=== PATIENT | male | born 1945 | race Caucasian/White ===

== ENCOUNTER 2024-04-12 00:48 | Emergency (ER) | payer MEDICARE, OTHER, SELFPAY ==
[2024-04-12 00:52] VITALS: BP 157/97
--- NOTE | 2024-04-12 01:18 | ED.GENMED ---
History of Present Illness
General
Chief Complaint: Post Operative Problem(s)
Source: patient and family
Exam Limitations: none
Time Seen by Provider: 04/12/24 01:00
Nursing documentation reviewed up to this point in time: agreed with
Travel History
Have you had any contact with someone who has COVID-19?: No
Do you have any symptoms of coronavirus? Fever > 100 degrees, chills, cough, shortness of breath, sore throat, loss of taste or smell, muscle aches, or headache?: No
History of Present Illness
History of Present Illness:
Pleasant 79-year-old male who presents with left ear bleeding. Patient had Mohs surgery by Dr. Rouse earlier today. Around 10 PM this evening, the bleeding started. He is was unable to get it under control. Patient is on aspirin and Plavix.
Patient denies fever, chills, chest pain, or shortness of breath. He reports no other complaints.
Past History
Past History
ED Past Medical History: HTN, Hypercholesterolemia, NIDDM and NC
ED Past Surgical History: Appendectomy and Cardiac (Stents X 2)
Social History
Tobacco: Non-smoker
Alcohol: Occasional
Drug: None
Personal:
Living: with family
Employment: Retired
Family History
Family History: Other
Review of Systems
Review of Systems
Allergies reviewed?: Yes
Other source history: family
All Other Systems: ROS reviewed and negative except as documented in HPI and ROS
Phy Exam
General Physical Exam
General Presentation: well appearing and mild distress
General age: appears stated age
General Skin: warm and dry
General Habitus: elderly
General Mental: alert
General Hydration: appears well hydrated
ENT Exam
ENT Exam: EOMI, neck supple and swallowing well
Eye Exam
Eye Exam: PERRL and EOMI
Pulmonary Exam
Pulmonary Exam: lungs clear and no respiratory distress
Cough: no cough
Neurological Exam
Neurological Exam: alert and oriented x3
Musculoskeletal Exam
Musculoskeletal Exam: full ROM and neck pain
Skin Exam
Skin Exam: normal color, warm/dry and other (Left ear evidence of Mohs surgery. There is bleeding coming from the top of the ear from the suture line. )
Course
Vital Signs
Initial and Last Documented VS:
Initial Vital Signs
Temp Pulse Resp BP Pulse Ox
98.7 F 99 20 157/97 98
04/12/24 00:52 04/12/24 00:52 04/12/24 00:52 04/12/24 00:52 04/12/24 00:52
Last Documented Vital Signs
Temp Pulse Resp BP Pulse Ox
98.7 F 109 20 142/92 97
04/12/24 00:52 04/12/24 03:21 04/12/24 00:52 04/12/24 03:21 04/12/24 03:21
*Critical Care Note
Total Time (30-74mins, 75-104mins- exclusive of procedures): Not Applicable
Update Note
Update Note:
I placed a suture to help control the bleeding. I packed the wound with Surgifoam. Bleeding is controlled.
04/12/2024 0248 AM: Bleeding has been controlled. Patient to be discharged home to follow-up with Dr. Rouse
ED Attending Note
-
Portions of this chart may have been created with voice recognition software.� Occasional wrong word or��sound alike� substitutions may have occurred due to the inherent limitations of voice recognition software.
Discharge Plan
Departure
Patient Disposition: Home (Routine Discharge)
Date of Disposition: 04/12/24
Time of Disposition: 02:59
Patient with high blood pressure during this ER visit?: Yes
Condition: Good
Discharge Problem:
Post-op bleeding
Instructions: Wound Care (DC), Bleeding After Surgery
Prescriptions:
No Action
glipizide 5 MG tablet extended release 24hr
5 mg PO DAILY
metformin 1,000 MG tablet
1,000 mg PO BID@0800,1700
aspirin 81 MG tablet,chewable
81 mg PO DAILY
azelastine 1 SPRAY aerosol,spray
2 spray intranasal DAILY
folic acid 0.8 MG capsule
0.8 mg PO DAILY
sitagliptin phosphate [Januvia] 100 MG tablet
100 mg PO DAILY
multivitamin with folic acid [Tab-A-Natasha] 1 TABLET tablet
1 tab PO DAILY
fluticasone propionate 1 SPRAY spray,suspension
2 spray intranasal DAILY
atorvastatin 40 MG tablet
40 mg PO QPM Qty: 90 3RF
acetaminophen 325 MG tablet
650 mg PO Q4HPRN PRN (Reason: mild pain) 0RF
pantoprazole 40 MG tablet,delayed release (DR/EC)
40 mg PO DAILY Qty: 90 0RF
metoprolol succinate 12.5 MG tablet extended release 24 hr
12.5 mg PO HS Qty: 30 1RF
clopidogrel 75 MG tablet
75 mg PO DAILY Qty: 30 3RF
oxycodone 5 MG tablet
5 mg PO Q6HPRN PRN (Reason: moderate-severe pain control) Qty: 28 0RF
dapagliflozin propanediol [Farxiga] 10 MG tablet
10 mg PO DAILY Qty: 30 0RF
furosemide [Lasix] 40 MG tablet
40 mg PO DAILY Qty: 7 1RF
potassium chloride [Klor-Con M20] 20 MEQ tablet,ER particles/crystals
20 meq PO DAILY Qty: 7 1RF
Referrals:
Harrison Chaidez MD [Family Provider] -
Ra Rouse MD [Consulting Staff] -
Activity Restrictions/Additional Instructions:
Please follow-up with Dr. Rouse.
It was a pleasure meeting you and taking part in your care. We hope for your continued healing and wellness.
Please read discharge instructions in their entirety. However, they are for general education and may not describe your exact diagnosis at discharge. Information on your ER visit and medical conditions were discussed with you along with appropriate
follow up information...
If indicated, please take your medications as instructed and indicated on discharge paperwork.
Please schedule a follow up appointment as directed. Call to schedule an appointment
Please return to the emergency department with ANY change in, persisting, or worsening of symptoms. If any of your symptoms do not improve, or persist, or become more severe within 6-12 hours, please return to the emergency department for further
care.
Please return to the emergency department if you develop a headache, neck pain/stiffness, fever greater than 100.4F, chest pain, shortness of breath, persistent nausea, vomiting, slurred speech, difficulty walking, numbness/tingling, weakness, signs
of infection or any other symptoms that are worrisome to you.
If you have any questions or concerns please do not hesitate to call the Hospital at or E-mail me directly at [email or web address]
Interventions
Interventions:
*Risk Screen - Suicide Last Done: 04/12/24 00:52
*General Assessment Last Done: 04/12/24 00:52
*Neglect/Abuse Screening Last Done: 04/12/24 00:52
ED- Fall Risk Assessment Last Done: 04/12/24 00:52
*ED COVID-19 Vaccine History Last Done: 04/12/24 00:52
*Nursing Disposition Last Done: 04/12/24 03:21
ED-Skin Assessment Last Done: 04/12/24 01:28
Discharge Date and Time
Discharge Date/Time: 04/12/24 03:24
Print Language: CYMRO
[2024-04-12 03:21] VITALS: BP 142/92
== END 2024-04-12 03:24 | disposition home or self-care (01) ==
LOC: EMR 00:48
PROVIDERS: EMERGENCY PHYSICIAN Student in an Organized Health Care Education/Training Program; FAMILY PHYSICIAN Family Medicine
DX: L76.21 Postprocedural hemorrhage of skin and subcutaneous tissue following a dermatologic procedure (principal); I10 Essential (primary) hypertension; E78.00 Pure hypercholesterolemia, unspecified; E11.9 Type 2 diabetes mellitus without complications; I25.2 Old myocardial infarction; Z79.02 Long term (current) use of antithrombotics/antiplatelets; Z79.82 Long term (current) use of aspirin; Z90.49 Acquired absence of other specified parts of digestive tract; Z95.5 Presence of coronary angioplasty implant and graft
CPT/HCPCS: 99282

== ENCOUNTER 2024-08-12 13:58 | Outpatient (RCR) | payer MEDICARE, OTHER, SELFPAY | END 2024-08-12 23:59 | disposition home or self-care (01) | LOC: RPT 13:58 | PROVIDERS: ATTENDING PHYSICIAN Family Medicine | DX: R26.89 Other abnormalities of gait and mobility (principal); E08.8 Diabetes mellitus due to underlying condition with unspecified complications; R26.2 Difficulty in walking, not elsewhere classified; M62.81 Muscle weakness (generalized) | CPT/HCPCS: 97110; 97112; 97162 ==

== ENCOUNTER → 2024-09-06 11:11 | Outpatient (REF) | payer MEDICARE, OTHER, SELFPAY | LOC: RAD 11:11 | PROVIDERS: ATTENDING PHYSICIAN Family Medicine | DX: M54.50 Low back pain, unspecified (principal) | CPT/HCPCS: 72110 ==

== ENCOUNTER 2024-09-11 09:55 | Outpatient (RCR) | payer MEDICARE, OTHER, SELFPAY | END 2024-09-11 23:59 | disposition home or self-care (01) | LOC: RPT 09:55 | PROVIDERS: ATTENDING PHYSICIAN Family Medicine | DX: R26.89 Other abnormalities of gait and mobility (principal) | CPT/HCPCS: 97110; 97112; 97116; 97530 ==

== ENCOUNTER → 2024-10-02 14:08 | Outpatient (REF) | payer MEDICARE, OTHER, SELFPAY | LOC: RAD 14:08 | PROVIDERS: ATTENDING PHYSICIAN Family Medicine | DX: R20.9 Unspecified disturbances of skin sensation (principal); R09.89 Other specified symptoms and signs involving the circulatory and respiratory systems | CPT/HCPCS: 93922; 93925 ==

== ENCOUNTER 2024-10-07 08:55 | Outpatient (RCR) | payer MEDICARE, OTHER, SELFPAY | END 2024-10-07 23:59 | disposition home or self-care (01) | LOC: RPT 08:55 | PROVIDERS: ATTENDING PHYSICIAN Family Medicine | DX: R26.89 Other abnormalities of gait and mobility (principal); E08.8 Diabetes mellitus due to underlying condition with unspecified complications; M62.81 Muscle weakness (generalized); Z73.6 Limitation of activities due to disability | CPT/HCPCS: 97110; 97112; 97530 ==

== ENCOUNTER → 2024-10-16 13:19 | Outpatient (REF) | payer MEDICARE, OTHER, SELFPAY | LOC: RAD 13:19 | PROVIDERS: ATTENDING PHYSICIAN Student in an Organized Health Care Education/Training Program; FAMILY PHYSICIAN Family Medicine | DX: R09.89 Other specified symptoms and signs involving the circulatory and respiratory systems (principal) | CPT/HCPCS: 93880 ==

== ENCOUNTER 2024-11-11 14:03 | Outpatient (RCR) | payer MEDICARE, OTHER, SELFPAY | END 2024-11-11 23:59 | disposition home or self-care (01) | LOC: RPT 14:03 | PROVIDERS: ATTENDING PHYSICIAN Family Medicine | DX: R26.89 Other abnormalities of gait and mobility (principal); E08.8 Diabetes mellitus due to underlying condition with unspecified complications; M62.81 Muscle weakness (generalized); Z73.6 Limitation of activities due to disability | CPT/HCPCS: 97110; 97112; 97530 ==

== ENCOUNTER 2024-11-21 09:00 | Outpatient (RCR) | payer MEDICARE, OTHER, SELFPAY | END 2024-11-21 10:36 | disposition home or self-care (01) | LOC: RPT 09:00 | PROVIDERS: ATTENDING PHYSICIAN Family Medicine | DX: R26.89 Other abnormalities of gait and mobility (principal); E08.8 Diabetes mellitus due to underlying condition with unspecified complications; M62.81 Muscle weakness (generalized); Z73.6 Limitation of activities due to disability | CPT/HCPCS: 97110; 97112; 97530 ==

== ENCOUNTER → 2025-01-13 15:10 | Outpatient (REF) | payer MEDICARE, OTHER, SELFPAY | LOC: PAVMRI 15:10 | PROVIDERS: ATTENDING PHYSICIAN Specialist; FAMILY PHYSICIAN Family Medicine | DX: M54.16 Radiculopathy, lumbar region (principal) | CPT/HCPCS: 72148 ==

== ENCOUNTER → 2025-10-21 09:59 | Outpatient (REF) | payer MEDICARE, OTHER, SELFPAY | LOC: EMG 09:59 | PROVIDERS: ATTENDING PHYSICIAN Podiatrist Foot & Ankle Surgery; FAMILY PHYSICIAN Family Medicine | DX: M21.372 Foot drop, left foot (principal); R20.0 Anesthesia of skin; M54.16 Radiculopathy, lumbar region | CPT/HCPCS: 95886; 95910 ==